=== PATIENT | female | born 1960 | race Caucasian/White ===

== ENCOUNTER 2017-11-27 10:02 | Day surgery (SDC) | payer OTHER ==
[2017-11-27] MEDS ORDERED: MEPERIDINE 25 MG INJ IV (12:00)
[2017-11-27] MEDS ORDERED: FENTAnyl 50 MCG/ML VIAL IV ×2 (12:00)
[2017-11-27] MEDS ORDERED: HYDROmorphONE (0.2 MG/ML) 10ML SYG IV (12:00)
[2017-11-27] MEDS ORDERED: hydrALAzine 20 MG INJ IV (12:00)
[2017-11-27] MEDS ORDERED: LABETALOL HCL 20MG INJ IV (12:00)
[2017-11-27] MEDS ORDERED: FENTAnyl 50 MCG/ML VIAL (12:34)
[2017-11-27] MEDS ORDERED: PROPOFOL 20 ML (12:34)
[2017-11-27] MEDS ORDERED: ACETAMINOPHEN 1000MG/100ML IV 100 ML (12:45)
[2017-11-27] MEDS ORDERED: CEFAZOLIN 1 GM INJ (12:45)
[2017-11-27] MEDS ORDERED: DEXAMETHASONE 4 MG/ML 1 ML INJ (12:50)
[2017-11-27] MEDS ORDERED: ONDANSETRON 4 MG INJ (12:50)
[2017-11-27] MEDS ORDERED: METOCLOPRAMIDE 10 MG INJ (12:51)
[2017-11-27] MEDS ORDERED: FAMOTIDINE 20 MG INJ (12:52)
[2017-11-27] MEDS ORDERED: KETOROLAC 30 MG INJ (13:03)
[2017-11-27] MEDS: HYDROmorphONE (0.2 MG/ML) 10ML SYG IV (13:18)
[2017-11-27] MEDS: ONDANSETRON 4 MG INJ IV (13:18)
[2017-11-27] MEDS ORDERED: IBUPROFEN 600 MG TAB PO (13:30)
[2017-11-27] MEDS ORDERED: KETOROLAC 30 MG INJ IV (13:30)
== END 2017-11-27 15:40 | disposition home or self-care (01) ==
LOC: SDS 10:02
DX: N84.1 Polyp of cervix uteri (principal); K21.9 Gastro-esophageal reflux disease without esophagitis
CPT/HCPCS: 58120; 71045; 88305; 93005

== ENCOUNTER 2019-03-25 16:27 | Emergency (ER) | payer OTHER ==
[2019-03-25 21:09] LABS: WHITE BLOOD COUNT 16.9 10^3/ul (4.8-10.8)
[2019-03-25 21:09] LABS: HEMOGLOBIN 11.3 g/dl (12.0-16.0); MEAN CORPUSCULAR HEMOGLOBIN 18.8 pg (29.0-33.0); MEAN CORPUSCULAR HGB CONC 29.7 g/dl (32.0-37.0); MEAN CORPUSCULAR VOLUME 63.3 fl (82.0-101.0); MEAN PLATELET VOLUME 9.7 fl (7.4-10.4); PLATELET COUNT 632 10^3/UL (140-415); RED CELL DISTRIBUTION WIDTH 17.1 % (11.5-14.5)
[2019-03-25 21:23] LABS: ADD MAN DIFF? YES; POSITIVE DIFF @See below
[2019-03-25 21:27] LABS: ADD UMIC YES; ALANINE AMINOTRANSFERASE 22 IU/L (13-69); ALBUMIN 4.2 g/dl (3.3-4.9); ALBUMIN/GLOBULIN RATIO 1.16; ALKALINE PHOSPHATASE 87 IU/L (42-121); ANION GAP 10 (5-13); ASPARTATE AMINO TRANSFERASE 21 IU/L (15-46); BILIRUBIN,INDIRECT 0.4 mg/dl (0-1.1); BILIRUBIN,TOTAL 0.4 mg/dl (0.2-1.3); BLOOD UREA NITROGEN 12 mg/dl (7-20); CALCIUM 9.7 mg/dl (8.4-10.2); CARBON DIOXIDE 28 mmol/L (21-31); CHLORIDE 104 mmol/L (97-110); Estimated GFR > 60 mL/min (>60); GLUCOSE 100 mg/dl (70-220); LIPASE 147 U/L (23-300); POTASSIUM 4.5 mmol/L (3.5-5.1); SODIUM 142 mmol/L (135-144); TOTAL PROTEIN 7.8 g/dl (6.1-8.1); UR ASCORBIC ACID NEGATIVE (NEGATIVE); UR BACTERIA FEW /HPF (NONE SEEN); UR BILIRUBIN (Dip) NEGATIVE (NEGATIVE); UR BLOOD (Dip) NEGATIVE (NEGATIVE); UR CALCIUM OXALATE CRYSTAL FEW /HPF (NONE SEEN); UR CLARITY SLIGHTLY CLOUDY (CLEAR); UR COLOR YELLOW (YELLOW); UR GLUCOSE (Dip) NEGATIVE (NEGATIVE); UR KETONES (Dip) NEGATIVE (NEGATIVE); UR LEUKOCYTE ESTERASE (Dip) TRACE Leu/ul (NEGATIVE); UR MUCUS FEW /HPF (NONE SEEN); UR NITRITE (Dip) NEGATIVE (NEGATIVE); UR RBC 3 /HPF (0-5); UR SPECIFIC GRAVITY (Dip) 1.027 (1.003-1.030); UR SQUAMOUS EPITHELIAL CELL MODERATE /HPF (FEW); UR TOTAL PROTEIN (Dip) NEGATIVE (NEGATIVE); UR UROBILINOGEN (Dip) NEGATIVE (NEGATIVE); UR WBC 3 /HPF (0-5)
[2019-03-25 21:38] LABS: TROPONIN-I < 0.012 ng/ml (0.000-0.120)
[2019-03-25 23:01] LABS: ANISOCYTOSIS 3+ (0-0); LYMPHOCYTES #M 8.2 10^3/ul (0.8-2.9); LYMPHOCYTES % (M) 49 % (15-51); MICROCYTOSIS 3+ (0-0); MONOCYTE #M 0.5 10^3/ul (0.3-0.9); MONOCYTES % (M) 3 % (0-11); OVALOCYTES 2+ (0-0); PLATELET ESTIMATE INCREASED; POIKILOCYTOSIS 2+ (0-0); REACTIVE LYMPHOCYTES #M 0.5 10^3/ul (0.0-0.0); REACTIVE LYMPHOCYTES% (M) 3 % (0-0); SEGMENTED NEUTROPHILS (M) % 45 % (39-77); SMUDGE%M 34 % (0-0)
== END 2019-03-25 23:45 | disposition home or self-care (01) ==
LOC: E/R 16:27
DX: R10.13 Epigastric pain (principal)
CPT/HCPCS: 36415; 71045; 74176; 80053; 81001; 83690; 84484; 85025; 93005; 99285-25

== ENCOUNTER 2019-06-04 14:59 | Emergency (ER) | payer OTHER ==
[2019-06-04] MEDS: LIDOCAINE/MYLANTA 40 ML BTL PO (16:10)
== END 2019-06-04 17:36 | disposition home or self-care (01) ==
LOC: FTE 14:59
DX: R05 Cough (principal)
CPT/HCPCS: 71046; 99283-25

== ENCOUNTER 2019-06-08 16:01 | Emergency (ER) | payer OTHER ==
[2019-06-08 18:11] LABS: ADD MAN DIFF? NO
[2019-06-08 18:12] LABS: WHITE BLOOD COUNT 9.6 10^3/ul (4.8-10.8)
[2019-06-08 18:12] LABS: BASOPHILS % 0.3 % (0.0-2.0); EOSINOPHILS # 0.2 10^3/ul (0.0-0.5); EOSINOPHILS % 2.4 % (0.0-7.0); HEMATOCRIT 34.7 % (37.0-47.0); HEMOGLOBIN 10.5 g/dl (12.0-16.0); LYMPHOCYTES # 3.2 10^3/ul (0.8-2.9); MEAN CORPUSCULAR HEMOGLOBIN 18.9 pg (29.0-33.0); MEAN CORPUSCULAR HGB CONC 30.3 g/dl (32.0-37.0); MEAN CORPUSCULAR VOLUME 62.5 fl (82.0-101.0); MEAN PLATELET VOLUME 9.7 fl (7.4-10.4); MONOCYTE # 0.7 10^3/ul (0.3-0.9); MONOCYTES % 7.2 % (0.0-11.0); NEUTROPHIL # 5.5 10^3/ul (1.6-7.5); NEUTROPHILS % 56.8 % (39.0-77.0); PLATELET COUNT 496 10^3/UL (140-415); RED BLOOD COUNT 5.55 10^6/ul (4.20-5.40); RED CELL DISTRIBUTION WIDTH 15.9 % (11.5-14.5)
[2019-06-08 18:15] LABS: ADD UMIC YES; UR ASCORBIC ACID NEGATIVE (NEGATIVE); UR BACTERIA FEW /HPF (NONE SEEN); UR BILIRUBIN (Dip) NEGATIVE (NEGATIVE); UR BLOOD (Dip) NEGATIVE (NEGATIVE); UR CLARITY CLEAR (CLEAR); UR COLOR YELLOW (YELLOW); UR GLUCOSE (Dip) NEGATIVE (NEGATIVE); UR KETONES (Dip) NEGATIVE (NEGATIVE); UR LEUKOCYTE ESTERASE (Dip) TRACE Leu/ul (NEGATIVE); UR MUCUS FEW /HPF (NONE SEEN); UR NITRITE (Dip) NEGATIVE (NEGATIVE); UR RBC 0 /HPF (0-5); UR SPECIFIC GRAVITY (Dip) 1.016 (1.003-1.030); UR SQUAMOUS EPITHELIAL CELL FEW /HPF (FEW); UR TOTAL PROTEIN (Dip) NEGATIVE (NEGATIVE); UR UROBILINOGEN (Dip) NEGATIVE (NEGATIVE); UR WBC 2 /HPF (0-5)
[2019-06-08 18:32] LABS: ALANINE AMINOTRANSFERASE 22 IU/L (13-69); ALBUMIN 4.3 g/dl (3.3-4.9); ALBUMIN/GLOBULIN RATIO 1.13; ALKALINE PHOSPHATASE 71 IU/L (42-121); ANION GAP 10 (5-13); ASPARTATE AMINO TRANSFERASE 24 IU/L (15-46); BILIRUBIN,INDIRECT 0.4 mg/dl (0-1.1); BILIRUBIN,TOTAL 0.4 mg/dl (0.2-1.3); BLOOD UREA NITROGEN 9 mg/dl (7-20); CALCIUM 9.3 mg/dl (8.4-10.2); CARBON DIOXIDE 29 mmol/L (21-31); CHLORIDE 103 mmol/L (97-110); CREATININE 0.73 mg/dl (0.44-1.00); Estimated GFR > 60 mL/min (>60); GLUCOSE 101 mg/dl (70-220); LIPASE 94 U/L (23-300); POTASSIUM 3.7 mmol/L (3.5-5.1); SODIUM 142 mmol/L (135-144); TOTAL PROTEIN 8.1 g/dl (6.1-8.1)
[2019-06-08 18:41] LABS: B-TYPE NATRIURETIC PEPTIDE 12 PG/ML (0-125)
== END 2019-06-08 19:25 | disposition home or self-care (01) ==
LOC: E/R 16:01
DX: R60.0 Localized edema (principal)
CPT/HCPCS: 80053; 81001; 83690; 83880; 85025; 99283